=== PATIENT | female | born 1980 | race American Indian/Alaskan Native ===

== ENCOUNTER 2018-06-12 05:53 | Observation (INO) | payer OTHER ==
[2018-06-07 10:20] LABS: Eosinophils # (Auto) 0.1 K/mm3 (0.0-0.4); Eosinophils % (Auto) 2.2 % (0.0-4.3); Hematocrit 36.4 % (30.3-42.9); Hemoglobin 11.9 gm/dl (10.1-14.3); Lymphocytes # (Auto) 1.2 K/mm3 (1.2-5.4); Lymphocytes % (Auto) 29.7 % (13.4-35.0); Mean Corpuscular HGB Conc 33 % (30-34); Mean Corpuscular Volume 79 fl (79-97); Monocytes # (Auto) 0.5 K/mm3 (0.0-0.8); Monocytes % (Auto) 12.2 % (0.0-7.3); Platelet Count 326 K/mm3 (140-440); Red Cell Distribution Width 14.7 % (13.2-15.2)
--- NOTE | 2018-06-07 10:59 | Anesthesia Consultation ---
Anesthesia Consult and Med Hx Date of service: 06/07/18 - Airway Anesthetic Teeth Evaluation: Good, Chipped (#24) ROM Head & Neck: Adequate Mental/Hyoid Distance: Adequate Mallampati Class: Class II Intubation Access Assessment: Probably Good - Pulmonary Exam CTA: Yes - Cardiac Exam Cardiac Exam: RRR - Pre-Operative Health Status ASA Pre-Surgery Classification: ASA2 Proposed Anesthetic Plan: General - Pre-Anesthesia Comment Pre-Anesthesia Comments: TAP block discussed - patient has fear of needles and was hesistant but discussed "heavy" premed prior to preceding with block - Pulmonary Hx Smoking: No Hx Asthma: No Hx Respiratory Symptoms: No SOB: No - Cardiovascular System Hx Hypertension: No Hx Coronary Artery Disease: No Hx Heart Attack/AMI: No Hx Angina: No - Central Nervous System CVA: No Hx Back Pain: No Hx Psychiatric Problems: No - Gastrointestinal Hx Gastroesophageal Reflux Disease: No - Endocrine Hx Insulin Dependent Diabetes: No Hx Non-Insulin Dependent Diabetes: No Hx Hyperthyroidism: Yes (Takes DAILY PILL TO CORRECT) - Hematic Hx Anemia: No - Other Systems Hx Alcohol Use: Yes (occasional ) Hx Cancer: No - Additional Comments Anesthesia Medical History Comments: ASA2 38 y.o.f. with hyperthyroidism, s/p appendectomy, with menorrahgia 2/2 to fibroids scheduled for robotic hysterectomy. Allergies to amoxcillin - rash, iodinated contast - rash, prilosec - flu-like symptoms
[~2018-06-12 05:53] MED LIST: DILAUDID IV PRN; LACTATED RINGERS 1,000 ML IV SCH; NEURONTIN PO NR; SUBLIMAZE IV PRN; TYLENOL PO NR; VERSED IV NR; ZOFRAN IV PRN
[2018-06-12] MEDS ORDERED: NACL BACTERIOSTATIC INFILTRATI ONE (06:10)
--- NOTE | 2018-06-12 07:03 | History and Physical Report ---
History of Present Illness Date of examination: 06/12/18 Date of admission: 06/12/2018 Chief complaint: pelvic pain and DUB History of present illness: 38y/o with a known history of uterine fibroids. The patient reports pain with her menses and heavy vaginal bleeding. Pelvic ultrasound demonstrates an enlarged fibroid uterus measuring 17cm. Multiple leiomyomas were seen. The patient has elected for definitive surgical management. Past History Past Medical History: other (fibroids) Past Surgical History: appendectomy ROOM SERVICE WAITER/WAITRESS History: fibroids Social history: single - Obstetrical History : 3 Para: 2 Hx # Term Pregnancies: 2 Number of Pregnancies: 0 Spontaneous Abortions: 1 Induced : 0 Number of Living Children: 2 Medications and Allergies Allergies Allergy/AdvReac Type Severity Reaction Status Date / Time amoxicillin Allergy Rash Verified 06/04/18 16:44 Iodinated Contrast- Oral and Allergy Hives Verified 06/04/18 16:44 IV Dye [Iodinated Contrast Media - IV Dye] omeprazole [From Prilosec] Allergy FLU LIKE Verified 06/04/18 16:44 SYMPTOMS omeprazole magnesium Allergy FLU LIKE Verified 06/04/18 16:44 [From Prilosec] SYMPTOMS Home Medications Medication Instructions Recorded Confirmed Last Taken Type Ibuprofen [Motrin] 200 mg PO Q6H PRN 06/04/18 06/04/18 Unknown History Active Meds: Active Medications Lactated Ringer's (Lactated Ringers) 1,000 mls @ 100 mls/hr IV DIRECT JEROME Ondansetron HCl (Zofran) 4 mg IV ONCE PRN PRN Reason: Nausea And Vomiting Review of Systems All systems: negative Genitourinary: vaginal bleeding, pelvic pain - Vital Signs Vital signs: Vital Signs Temp Pulse Resp BP Pulse Ox 97.7 F 60 18 134/75 100 06/07/18 09:19 06/07/18 09:19 06/07/18 09:19 06/07/18 09:19 06/07/18 09:19 Temp Pulse Resp BP Pulse Ox 98.0 F 62 20 132/85 100 06/12/18 06:35 06/12/18 06:35 06/12/18 06:35 06/12/18 06:35 06/12/18 06:35 - Physical Exam Breasts: Positive: deferred Cardiovascular: Regular rate Lungs: Positive: Clear to auscultation Abdomen: Positive: other (enlarged uterus) Results Result Diagrams: 06/07/18 09:55 All other labs normal. Assessment and Plan - Patient Problems (1) Leiomyoma Current Visit: Yes Status: Acute Plan to address problem: scheduled for a robotic hysterectomy (2) DUB (dysfunctional uterine bleeding) Current Visit: Yes Status: Acute (3) Dysmenorrhea Current Visit: Yes Status: Acute
[2018-06-12] MEDS ORDERED: MARCAINE 0.5% INFILTRATI ONE (07:14)
[2018-06-12] MEDS ORDERED: DECADRON ONE ×2 (07:14→07:16)
[2018-06-12] MEDS ORDERED: SUBLIMAZE ONE ×3 (07:14→10:29)
[2018-06-12] MEDS ORDERED: DIPRIVAN 10 MG/ML IV ONE (07:14)
[2018-06-12] MEDS ORDERED: XYLOCAINE 1% 20 mL ONE (07:14)
[2018-06-12] MEDS ORDERED: VERSED ONE ×2 (07:14→07:25)
[2018-06-12] MEDS ORDERED: ZOFRAN ONE (07:16)
[2018-06-12] MEDS ORDERED: QUELICIN ONE (07:16)
[2018-06-12] MEDS ORDERED: XYLOCAINE MPF 2% ONE (07:16)
[2018-06-12] MEDS ORDERED: ZEMURON IV ONE (07:16)
[2018-06-12] MEDS ORDERED: NEURONTIN ONE (07:16)
[2018-06-12] MEDS ORDERED: NEOSPORIN GU IR ONE ×2 (07:24→09:24)
[2018-06-12] MEDS ORDERED: GELFOAM POWDER 1GM MM ONE (07:24)
[2018-06-12] MEDS ORDERED: THROMBIN (BOVINE) TP ONE (07:24)
[2018-06-12] MEDS ORDERED: CLEOCIN 600 MG/50 mL 600 MG/50 ML BAG IV ONE (07:43)
[2018-06-12] MEDS ORDERED: GENTAMICIN 160 MG in NACL 0.9% 100 ML IV SCH (07:45)
--- NOTE | 2018-06-12 07:46 | Anesthesia Day of Surgery ---
Anesthesia Day of Surgery - Day of Surgery Patient Examined: Yes Patient H&P Reviewed: Yes Patient is NPO: Yes Jovan's Test: N/A
[2018-06-12] MEDS ORDERED: ANCEF/STERILE WATER 2 GM/20 ML 2 GM/20 ML SYRINGE IV NR (08:00)
[2018-06-12] MEDS ORDERED: CLEOCIN 600 MG/50 mL 600 MG/50 ML BAG IV SCH (08:00)
[2018-06-12] MEDS ORDERED: DILAUDID IV PRN (08:30)
[2018-06-12] MEDS ORDERED: ZOFRAN IV PRN ×2 (08:30→20:24)
[2018-06-12] MEDS ORDERED: NEURONTIN PO NR (08:30)
[2018-06-12] MEDS ORDERED: SUBLIMAZE IV PRN (08:30)
[2018-06-12] MEDS ORDERED: NACL 0.9% IR ONE (09:25)
[2018-06-12] MEDS ORDERED: LACTATED RINGERS 1,000 ML ONE ×2 (09:39→11:21)
[2018-06-12] MEDS ORDERED: NEO SYNEPHRINE/NS Syringe(OR USE) IV ONE (09:47)
[2018-06-12] MEDS ORDERED: NARCAN 0.4 MG/1 ML IV PRN (10:15)
[2018-06-12] MEDS ORDERED: AMBIEN PO PRN (10:15)
[2018-06-12] MEDS ORDERED: PERCOCET 5/325 PO PRN (10:15)
[2018-06-12] MEDS ORDERED: IBUPROFEN PO PRN (10:15)
[2018-06-12] MEDS ORDERED: ROBINUL ONE ×2 (10:21)
[2018-06-12] MEDS ORDERED: BLOXIVERZ ONE (10:21)
--- NOTE | 2018-06-12 10:22 | Operative Report ---
Operative Report Operative Report: Date of surgery: 06/12/2018 Preoperative diagnoses: Symptomatic uterine fibroid; dysmenorrhea; dysfunctional uterine bleeding Postoperative diagnoses: Same as above Procedure: Robotic hysterectomy Surgeon: Kirsty Flores M.D. Asbestos Wire Finisher: Giulia Wei Anesthesia: Gen. endotracheal anesthesia Estimated blood loss: 50 mL Pathology: Uterus, cervix, leiomyomas, bilateral tubes Indication: 38-year-old with a history of symptomatic uterine fibroids. The patient had ultrasound findings of a markedly enlarged fibroid uterus. The patient elected to undergo definitive surgical management. Procedure: The patient was taken to the operating room and given general endotracheal anesthesia without complication. She is prepped and draped in a normal sterile fashion. A bivalve speculum was placed in the patient's vagina and a single- tooth tenaculum placed on the anterior lip of the cervix. The uterus was sounded with the uterine sound. A Saygent uterine manipulator was placed in the bivalve speculum was then removed. Attention was then turned to the patient's abdomen where a millimeter supra umbilical skin incision was then made. A Veress needle was placed and peritoneal entry was verified water-filled syringe. Insufflation of the peritoneal cavity was performed with CO2 gas. The 12 mm trocar was then placed under direct visualization. An additional 8 mm trocar was placed on the patient's left and right lateral side just opposite of the supraumbilical trocar. An additional 5 mm right lateral trocar was then placed as the accessory port. The patient was then placed in steep Trendelenburg. The da Darleen robot was then engaged. A fenestrated forcep was placed in arm 2 and a vessel sealer was placed in arm 1. General survey revealed an enlarged fibroid uterus with multiple leiomyomas. The tubes and ovaries were normal in appearance. The surgeon then transferred to the surgical console. The mesosalpinx was then isolated on the right. The vessel sealer was used to coagulate the mesosalpinx which was then transected. The tube was transected from the ovary. The tubo-ovarian ligament was then coagulated and transected. The round ligament was then coagulated and transected also. The vesicouterine peritoneum was then entered from the patient's right side. The uterine vessels were then coagulated with the vessel sealer. The vessels were then transected . Attention was then turned to the patient's left side where the tubo-ovarian ligament and mesosalpinx were again isolated coagulated and transected. The vesical peritoneum was then entered from the left and joined in the midline. Peritoneum was reflected off of the lower uterine segment. Uterine vessels were then coagulated and then transected. The blood supply to the uterus was adequately contained. A myomectomy had to be performed in order to decompress the uterus. The uterus was also bivalved. The V care ring was visualized. Posterior colpotomy was created with the monopolar scissors. The incision was continued circumferentially until anterior colpotomy was made. The cervix and uterus were amputated from the vaginal cuff. The uterus was then removed along with the leiomyomas and tubes bilaterally through the vagina and a warm laparotomy sponge was placed and maintain the pneumoperitoneum. The vaginal cuff was then closed in a running fashion with V lock suture. Irrigation of the pelvis was performed. Hemoblast was applied to the incision. The supraumbilical 12 mm trocar site was closed with the Arley Garza device. The skin was then reapproximated with 4-0 Monocryl. The tissue was sent to pathology which included the cervix and uterus. The patient was then successfully extubated. She was then taken to the recovery room in stable condition. All sponge laps and needle counts were correct x2.
[2018-06-12] MEDS ORDERED: D5LR 1,000 ML IV SCH (11:00)
[2018-06-12] MEDS ORDERED: MORPHINE PCA 30MG/30ML IV SCH (11:00)
[2018-06-12] MEDS: TORADOL IV SCH ×2 (12:58→18:22)
[2018-06-12] MEDS: MORPHINE IV PRN (20:32)
[2018-06-13] MEDS: TORADOL IV SCH ×3 (00:04→11:54)
[2018-06-13] MEDS: MORPHINE IV PRN (01:42)
[2018-06-13 05:24] LABS: Hematocrit 36.1 % (30.3-42.9); Hemoglobin 11.7 gm/dl (10.1-14.3)
--- NOTE | 2018-06-13 07:36 | Progress Note ---
Assessment and Plan - Patient Problems (1) Leiomyoma Current Visit: Yes Status: Acute Plan to address problem: patient doing well discharge home (2) DUB (dysfunctional uterine bleeding) Current Visit: Yes Status: Acute (3) Dysmenorrhea Current Visit: Yes Status: Acute Subjective - Subjective Date of service: 06/13/18 Interval history: Patient without any significant complaints. Tolerated clear diet. Pain well controlled Patient reports: appetite normal, pain well controlled Objective - Vital Signs Latest vital signs: Vital Signs Temp Pulse Resp BP Pulse Ox 06/13/18 04:26 98.7 F 63 18 123/65 97 06/13/18 00:09 98.4 F 70 18 125/67 95 06/12/18 20:31 98.8 F 71 18 130/75 94 06/12/18 16:18 98.8 F 69 20 132/79 100 06/12/18 12:22 97.3 F L 70 24 131/79 99 06/12/18 11:15 69 18 132/70 97 06/12/18 11:00 65 20 137/75 100 06/12/18 10:50 68 20 135/76 100 06/12/18 10:45 77 24 145/79 99 06/12/18 10:40 88 20 139/69 99 06/12/18 10:36 96.9 F L 88 20 126/78 100 06/12/18 07:36 59 L 14 110/59 100 Intake and Output 06/12/18 06/13/18 06/13/18 22:59 06:59 14:59 Output Total 800 1000 Balance -800 -1000 Output: Urine 800 1000 Indwelling Catheter 800 1000 Other: Total, Output Amount 800 1000 Voiding Method Indwelling Catheter # Voids Indwelling Catheter 1,200 - Exam Abdomen: Present: normal appearance, soft
--- NOTE | 2018-06-13 07:38 | Discharge Summary ---
Providers - Providers Date of Admission: 06/12/18 10:15 Date of discharge: 06/13/18 Attending physician: LOUIE KAPADIA Hospitalization Reason for admission: other (uterine fibroids) Procedure: other (robotic hysterectomy and salpingectomy) Incision: normal Discharge diagnosis: other (Uterine fibroids) Hospital course: Patient admitted the day of surgery and underwent a robotic hysterectomy and bilateral salpingectomy. Please see operative note for details of surgery. Her postoperative course was uneventful. Condition at discharge: Good Disposition: [id number] TO HOME OR SELFCARE - Discharge Diagnoses (1) Leiomyoma Status: Acute (2) DUB (dysfunctional uterine bleeding) Status: Acute (3) Dysmenorrhea Status: Acute Plan - Discharge Medications Prescriptions: Ibuprofen [Motrin] 800 mg PO Q8HR PRN #60 tablet PRN Reason: Pain, Mild (1-3) oxyCODONE /ACETAMINOPHEN [Percocet 5/325] 1 tab PO Q6HR PRN #30 tablet PRN Reason: Pain - Provider Discharge Summary Activity: no sex for 6 weeks, no heavy lifting 4 weeks, no strenuous exercise Diet: routine Instructions: routine Additional instructions: [] Smoking cessation referral if applicable(refer to patient education folder for contact #) [] Refer to [facility] Booklet Call your doctor immediately for: * Fever > 100.5 * Heavy vaginal bleeding ( >1 pad per hour) * Severe persistent headache * Shortness of breath * Reddened, hot, painful area to leg or breast * Drainage or odor from incision. * Keep incision clean and dry at all times and follow doctor's instructions regarding bathing/showering Schedule postoperative follow-up in [address] Luna - Follow up plan
[2018-06-13 12:36] VITALS: BP 118/71
== END 2018-06-13 12:15 | disposition home or self-care (01) ==
LOC: OR 05:53 → OB 10:15
PROVIDERS: ADMIT Obstetrics & Gynecology; ATTEND Obstetrics & Gynecology
DX: D25.9 Leiomyoma of uterus, unspecified (principal); N93.8 Other specified abnormal uterine and vaginal bleeding; N94.6 Dysmenorrhea, unspecified
CPT/HCPCS: 36415; 58554; 64450; 84703; 85014; 85018; 85025; 86850; 86900; 86901; 88307; 96374; 96375; 96376; A4217; G0378; J0330; J1100; J1580; J1885; J2250; J2270; J2370; J2405; J2704; J2710; J3010; J7120; J7121; S2900; A4649

== ENCOUNTER 2018-08-22 14:27 | Outpatient (CLI) | payer OTHER ==
--- NOTE | 2018-08-22 15:00 | XRay Report ---
ABDOMEN RADIOGRAPHS INDICATION: Constipation. COMPARISON: None similar at this institution. FINDINGS: Frontal abdominal radiographs demonstrate nonobstructive bowel gas pattern without significant stool burden. Multiple aggregated calcified gallstones individually measure to the order of 6-7 mm. No focal suspicious calcifications, pneumatosis or pneumoperitoneum. Numerous small pelvic phleboliths. Right hemidiaphragm approximately 3 cm higher than the left. Top normal heart size. Slight lower lumbar degenerative spurring. CONCLUSION: No acute abdominal radiographic abnormality with various incidental findings, including cholelithiasis, as described. Please correlate. Thank you for the opportunity to participate in this patient's care.
== END 2018-08-22 14:28 | disposition home or self-care (01) ==
LOC: XRAY 14:27
PROVIDERS: ATTEND Nurse Practitioner
DX: K59.00 Constipation, unspecified (principal); Z90.49 Acquired absence of other specified parts of digestive tract
CPT/HCPCS: 74018